=== PATIENT | female | born 1965 | race African-American/Black ===

== ENCOUNTER 2019-10-02 20:13 | Emergency (ER) | payer SELFPAY ==
[2019-10-02] MEDS ORDERED: ASPIRIN 81 MG TABLET, CHEWABLE PO ONE (20:33)
--- NOTE | 2019-10-02 20:36 | ER Document Report ---
ED Medical Screen (RME) - General Chief Complaint: Chest Pain Stated Complaint: CHEST PRESSURE Time Seen by Provider: 10/02/19 20:33 Mode of Arrival: Ambulatory Information source: Patient Notes: 54-year-old female presented to ED for complaint of chest tightness intermittently for about a month. She states she had the pain night before last and that she is having it again now. She states she also has pain in her left hand that is excruciating. She states she has swelling to her hand and pain to her fourth and fifth finger. She states she does not have any cardiac history in the past. She does not have high blood pressure cholesterol. She does have a history of multiple surgeries. She has had a breast lump removed and ablation and myomectomy and then a hysterectomy. She states she does not smoke drink or use any illicit drugs. She is here with her son who also has chest pain. She is alert oriented respirations regular nonlabored speaking in full sentences I have greeted and performed a rapid initial assessment of this patient. A comprehensive ED assessment and evaluation of the patient, analysis of test results and completion of medical decision making process will be conducted by an additional ED providers. - Related Data Allergies/Adverse Reactions: No Known Allergies Allergy (Unverified 10/02/19 20:27) Past Medical History - Social History Frequency of alcohol use: None Physical Exam - Vital signs Vitals: Temp 98.9 F 10/02/19 20:27 Course - Vital Signs Vital signs: Temp Pulse Resp BP Pulse Ox 98.9 F 66 15 137/82 H 98 10/02/19 20:29 10/02/19 20:29 10/02/19 20:29 10/02/19 20:29 10/02/19 20:29
[2019-10-02 21:09] LABS: ABSOLUTE BASOPHILS # (AUTO) 0.1 10^3/uL (0.0-0.2); ABSOLUTE EOSINOPHILS # (AUTO) 0.2 10^3/uL (0.0-0.6); ABSOLUTE LYMPHOCYTES (AUTO) 3.1 10^3/uL (0.5-4.7); ABSOLUTE MONOCYTES (AUTO) 0.6 10^3/uL (0.1-1.4); ABSOLUTE NEUT (AUTO) 3.8 10^3/uL (1.7-8.2); BASOPHILS % (AUTO) 0.8 % (0-2); EOSINOPHILS % (AUTO) 2.7 % (0-6); HEMATOCRIT 36.2 % (36.0-47.0); HEMOGLOBIN 12.5 g/dL (12.0-15.5); LYMPHOCYTES % (AUTO) 39.2 % (13-45); MEAN CORPUSCULAR HEMOGLOBIN 29.9 pg (27.0-33.4); MEAN CORPUSCULAR HGB CONC 34.5 g/dL (32.0-36.0); MEAN CORPUSCULAR VOLUME 87 fl (80-97); PLATELET COUNT 248 10^3/uL (150-450); RED BLOOD COUNT 4.18 10^6/uL (3.72-5.28); RED CELL DISTRIBUTION WIDTH 13.5 % (11.5-14.0); SEGMENTED NEUTROPHILS % (AUTO) 49.3 % (42-78); TOTAL CELLS COUNTED % (AUTO) 100 %; WHITE BLOOD COUNT 7.8 10^3/uL (4.0-10.5)
--- NOTE | 2019-10-02 21:23 | EKG REPORT ---
SEVERITY:- NORMAL ECG - SINUS RHYTHM : Confirmed by: Rosalie Hay MD 02-Oct-2019 21:23:11
[2019-10-02 21:36] LABS: ALBUMIN 3.9 g/dL (3.5-5.0); ALKALINE PHOSPHATASE 73 U/L (38-126); ANION GAP 5 (5-19); ASPARTATE AMINO TRANSFERASE 18 U/L (14-36); BILIRUBIN,TOTAL 0.4 mg/dL (0.2-1.3); BLOOD UREA NITROGEN 17 mg/dL (7-20); CALCIUM 8.9 mg/dL (8.4-10.2); CARBON DIOXIDE 28 mmol/L (22-30); CHLORIDE 107 mmol/L (98-107); GLUCOSE 87 mg/dL (75-110); POTASSIUM 4.2 mmol/L (3.6-5.0); TOTAL PROTEIN 6.8 g/dL (6.3-8.2)
--- NOTE | 2019-10-02 21:43 | RADIOLOGY REPORT (SQ) ---
EXAM DESCRIPTION: XR HAND 3 OR MORE VIEWS COMPLETED DATE/TME: 10/02/2019 20:36 CLINICAL HISTORY: 54 years ,Female Pain to hand and wrist fingers in the third and fourth digit COMPARISON: None. TECHNIQUE: LEFT hand, Three view FINDINGS: No acute fractures or dislocations are identified. No osseous destructive lesions. No radiopaque foreign object noted. IMPRESSION: No acute fracture or dislocation is identified.
--- NOTE | 2019-10-02 21:56 | RADIOLOGY REPORT (SQ) ---
EXAM DESCRIPTION: XR CHEST 2 VIEWS COMPLETED DATE/TME: 10/02/2019 20:34 CLINICAL HISTORY: 54 years Female Chest pain COMPARISON: None. FINDINGS: The cardiomediastinal silhouette appears unremarkable. No consolidating infiltrates or pleural effusions. No pneumothorax. IMPRESSION: No acute abnormality is identified.
--- NOTE | 2019-10-02 22:02 | ER Document Report ---
ED General - General Chief Complaint: Chest Pain Stated Complaint: CHEST PRESSURE Time Seen by Provider: 10/02/19 20:33 Mode of Arrival: Ambulatory Information source: Patient TRAVEL OUTSIDE OF THE [place] IN LAST 30 DAYS: No - HPI Onset: Other - over the last month Onset/Duration: Gradual Quality of pain: Achy, Pressure Severity: Mild Pain Level: 2 Associated symptoms: Other - left hand pain Exacerbated by: Denies Relieved by: Denies Similar symptoms previously: No Recently seen / treated by doctor: No Notes: 54 year old female with no significant PMH here in the ER for one month of off and on chest pain and off and on left hand pain. The patient denies shortness of breath, nausea, vomiting, sweating, fevers, chills. The patient says the chest pain can come on at any time. The patient is unsure of anything that can make the pain better or work once it comes on. The patient says flexion of her f ingers of her left hand makes the pain in her hand worse. The patient says at times she has some numbness and tingling in the fingers of her left hand. - Related Data Allergies/Adverse Reactions: No Known Allergies Allergy (Unverified 10/02/19 20:27) Past Medical History - General Information source: Patient - Social History Smoking Status: Never Smoker Frequency of alcohol use: None Drug Abuse: None Lives with: Family Family History: Reviewed & Not Pertinent Patient has suicidal ideation: No Patient has homicidal ideation: No Review of Systems - Review of Systems Constitutional: No symptoms reported EENT: No symptoms reported Cardiovascular: Chest pain Respiratory: No symptoms reported Gastrointestinal: No symptoms reported Genitourinary: No symptoms reported Female Genitourinary: No symptoms reported Musculoskeletal: Other - left hand pain (made worse with movement of her finges) Skin: No symptoms reported Hematologic/Lymphatic: No symptoms reported Neurological/Psychological: No symptoms reported -: Yes All other systems reviewed and negative Physical Exam - Vital signs Vitals: Temp 98.9 F 10/02/19 20:27 - Notes Notes: GENERAL: Well-appearing, well-nourished and in no acute distress. HEAD: Atraumatic, normocephalic. EYES: Pupils equal round and reactive to light, extraocular movements intact, sclera anicteric, conjunctiva are normal. ENT: External ears normal, nares patent, oropharynx clear without exudates. Moist mucous membranes. NECK: Normal range of motion, supple without lymphadenopathy or JVD. LUNGS: Breath sounds clear to auscultation bilaterally and equal. No wheezes rales or rhonchi. HEART: Regular rate and rhythm without murmurs, rubs or gallops. ABDOMEN: Soft, nontender, normoactive bowel sounds. No guarding, no rebound. No masses appreciated. EXTREMITIES: Tender over left flexor tendons of her 4th and 5th digit with no swelling, erythema or warmth. 2+ radial pulses in left hand. Normal range of motion, no pitting or edema. No clubbing or cyanosis. NEUROLOGICAL: Cranial nerves II through XII grossly intact. Normal speech, normal gait. PSYCH: Normal mood, normal affect. SKIN: Warm, Dry, normal turgor, no rashes or lesions noted. Course - Re-evaluation Re-evalutation: 10/02/19 22:50 The patient is here for off and on chest pain and left hand pain. The patient is low risk for ACS and her work up was completely normal in the ER despite having a month of chest pains. The patient has no PCP so she was told to obtain one and to have an outpatient cardiac stress test and to consider testing for Rheumatoid Arthritis. Patient seems to have pain over the flexor tendons of her left hand so tendonitis is possible. Patient told to rest her left hand and use NSAIDs. - Vital Signs Vital signs: Temp Pulse Resp BP Pulse Ox 98.9 F 66 15 137/82 H 98 10/02/19 20:29 10/02/19 20:29 10/02/19 20:29 10/02/19 20:29 10/02/19 20:29 - Laboratory Result Diagrams: 10/02/19 20:51 10/02/19 20:51 - Diagnostic Test Radiology reviewed: Image reviewed, Reports reviewed - EKG Interpretation by Nh EKG shows normal: Sinus rhythm, [place], Intervals, QRS Complexes Rate: Normal Rhythm: NSR Additional EKG results interpreted by me: 10/02/19 22:00 T wave inversions in aVR, III, V1 Discharge - Discharge Clinical Impression: Hand pain, left Chest pain Qualifiers: Chest pain type: unspecified Qualified Code(s): R07.9 - Chest pain, unspecified Condition: Stable Disposition: HOME, SELF-CARE Instructions: Chest Pain of Unclear Cause ([facility]), Tendonitis ([facility]), Tendon Strain ([facility]) Additional Instructions: Use Tylenol and Motrin for your left hand pain. Follow up with a primary care doctor. If you dont have a primary care doctor several are listed in your dsicharge paperwork. When you do follow up with a primary care doctor, you should have an outpatient cardiac stress test.
[2019-10-02 23:06] VITALS: BP 140/81
== END 2019-10-02 23:06 | disposition home or self-care (01) ==
LOC: ER 20:13
DX: R07.89 Other chest pain (principal); M79.642 Pain in left hand; R20.0 Anesthesia of skin; R20.2 Paresthesia of skin
CPT/HCPCS: 36415; 71046; 80053; 84484; 85025; 93005; 93010; 99284

== ENCOUNTER → 2019-12-16 | Outpatient (CLI) | payer MEDICAID ==
--- NOTE | 2019-12-16 09:15 | WOMENS IMAGING REPORT ---
EXAM DESCRIPTION: BILAT SCREENING MAMMO W/CAD IMAGES COMPLETED DATE/TIME: 12/16/2019 8:02 am REASON FOR STUDY: Z12.31 ENCOUNTER FOR SCREENING MAMMOGRAM FOR MALIGNANT NEOPLASM OF BREAST Z12.31 ENCNTR SCREEN MAMMOGRAM FOR MALIGNANT NEOPLASM OF [place] COMPARISON: None. EXAM PARAMETERS: Standard craniocaudal and mediolateral oblique views of each breast recorded using digital acquisition. Read with the assistance of CAD. .[facility] - [employer] Client Advisor Version 9.2 LIMITATIONS: None. FINDINGS: No suspicious masses, suspicious calcifications or architectural distortion. No areas of c oncern. IMPRESSION: NEGATIVE MAMMOGRAM. BIRADS 1 BREAST DENSITY: a. The breasts are almost entirely fatty. BIRAD: ASSESSMENT: 1 NEGATIVE RECOMMENDATION: ROUTINE SCREENING COMMENT: The patient has been notified of the results by letter per MQSA requirements. Additional no tification policies are in place for contacting patient with suspicious or incomplete findings. Quality ID #[id number]: The [employer] recommends an annual screening mammogram for women aged 40 years or over. This facility utilizes a reminder system to ensure that all patients receive reminder letters, and/or direct phone calls for appointments. This includes reminders for routine scr eening mammograms, diagnostic mammograms, or other Breast Imaging Interventions when appropriate. Th is patient will be placed in the appropriate reminder system. TECHNICAL DOCUMENTATION: FINDING NUMBER: (1) ASSESSMENT: (1) JOB ID: [id number] 2010 [employer]- All Rights Reserved Reading location - IP/workstation name: [email or web address]
== END ==
LOC: WI 07:09
PROVIDERS: ATTEND Family Medicine
DX: Z12.31 Encounter for screening mammogram for malignant neoplasm of breast (principal)
CPT/HCPCS: 77067